=== PATIENT | female | born 2000 | race Caucasian/White ===

== ENCOUNTER 2020-08-10 20:50 | Emergency (ER) | payer MEDICAID ==
[~2020-08-10] VITALS: Ht 161.3 cm; Wt 89.8 kg
[2020-08-10 20:55] VITALS: BP 141/66
--- NOTE | 2020-08-10 20:57 | NUR ---
To ED bed 07
--- NOTE | 2020-08-10 21:03 | NUR ---
20 y/o female presented to ER c/o Rt ear pain x 4 days. Pt denies any discharge but states is constant 8/10 ache pain in right ear. Pt denies fever, body aches, chills. Pt took advil w/ no relief. Pt resting in chair, VSS. No acute distress noted. pmh: denies NKA
--- NOTE | 2020-08-10 21:03 | NUR ---
Dr. Fajardo examining patient.
[2020-08-10] MEDS ORDERED: KETOROLAC 60 MG/2 ML VIAL IM ONE (21:10)
[2020-08-10] MEDS ORDERED: ACET-8386 PO (21:19)
[2020-08-10] MEDS ORDERED: IBUP-2213 PO (21:19)
[2020-08-10 21:28] VITALS: BP 141/66
--- NOTE | 2020-08-10 21:28 | NUR ---
Patient discharged with v/s stable. Written and verbal after care instructions given and explained. Patient alert, oriented and verbalized understanding of instructions. Ambulatory with steady gait. All questions addressed prior to discharge. ID band removed. Patient advised to follow up with PMD. Rx of ibuprofen & norco given. Patient educated on indication of medication including possible reaction and side effects. Opportunity to ask questions provided and answered.
== END 2020-08-10 21:28 | disposition home or self-care (01) ==
LOC: MED 20:50
DX: H92.01 Otalgia, right ear (principal)
CPT/HCPCS: 81025; 96372; 99283; J1885

== ENCOUNTER 2021-02-09 07:46 | Inpatient (IN) | payer MEDICAID, OTHER ==
[~2021-02-09] VITALS: Ht 160 cm; Wt 88.0 kg
[~2021-02-09 07:46] MED LIST: ACET-8386 PO; IBUP-2213 PO
[2021-02-09 07:51] VITALS: BP 121/77
[2021-02-09] MEDS ORDERED: KETOROLAC 30 MG/ML VIAL IVP ONE (08:10)
[2021-02-09] MEDS ORDERED: ONDANSETRON 4 MG/2 ML VIAL IVP ONE (08:10)
[2021-02-09] MEDS ORDERED: NACL 0.9% 1,000 ML IV ONE (08:10)
[2021-02-09] MEDS ORDERED: MORPHINE SULFATE 2 MG/ML SYR IVP ONE (08:10)
--- NOTE | 2021-02-09 08:25 | NUR ---
Dr. Jameson is evaluating patient at bedside
--- NOTE | 2021-02-09 08:25 | NUR ---
20 y/o F BIB family from home c/o epigastric pain x 1 day. Patient A&Ox4, ambulatory, reports upper abd pain 10/10, sharp/constant, radiating to R low back. Pt states Ibuprofen 800mg @ 0100 today without relief to symptoms. Patient denies dysuria, urinary symptoms, nausea, vomiting, diarrhea, constipation, chest pain. States pain worsens with movement. Last BM: today normal. Upper abd round/soft/tender to palpation. Pt placed into a gown and UA collected. Bed locked in lowest position, side rails x 1. LMP: Nov 2020 PMH: DENIES DAMION
--- NOTE | 2021-02-09 08:30 | NUR ---
Lab at bedside. UA handed to CPT [place].
--- NOTE | 2021-02-09 08:36 | NUR ---
US tech at bedside
[2021-02-09 08:42] LABS: BASOPHILS % (AUTO) 0.1 % (0.0-2.0); EOSINOPHILS # (AUTO) 0.1 K/uL (0-0.4); EOSINOPHILS % (AUTO) 0.4 % (0.0-4.0); HEMATOCRIT 38.1 % (36-48); HEMOGLOBIN 12.7 g/dL (12.0-16.0); LYMPHOCYTES % (AUTO) 16.2 % (20.5-51.1); MEAN CORPUSCULAR HEMOGLOBIN 30 pg (27-31); MEAN CORPUSCULAR HGB CONC 33 g/dL (33-37); MEAN CORPUSCULAR VOLUME 89.8 fL (80-94); MONOCYTES # (AUTO) 0.8 K/uL (0.8-1.0); MONOCYTES % (AUTO) 6.1 % (1.7-9.3); NEUTROPHILS # (AUTO) 9.7 K/uL (1.8-7.7); NEUTROPHILS % (AUTO) 77.2 % (42.2-75.2); PLATELET COUNT (AUTO) 301 K/uL (140-450); RED BLOOD CELL COUNT(AUTO) 4.24 MIL/uL (4.20-5.40); RED CELL DISTRIBUTION WIDTH 12.8 % (11.6-13.7); WHITE BLOOD COUNT (AUTO) 12.6 K/uL (4.8-10.8)
[2021-02-09 09:00] LABS: APPEARANCE,URINE CLEAR (CLEAR); BILIRUBIN,URINE NEGATIVE (NEGATIVE); BLOOD, URINE 1+ (NEGATIVE); COLOR,URINE YELLOW (YELLOW); LEUKOCYTE ESTERASE ,URINE NEGATIVE (NEGATIVE); NITRITE, URINE NEGATIVE (NEGATIVE); PH,URINE 6.5 (5.0-9.0); UGLUCOSE NEGATIVE (NEGATIVE)
[2021-02-09 09:01] LABS: ALBUMIN 3.5 g/dL (3.4-5.0); ANION GAP 16.3 (8-16); CARBON DIOXIDE 21.6 mmol/L (21-32); CREATININE 0.8 mg/dL (0.6-1.3); POTASSIUM 3.9 mmol/L (3.5-5.1); TOTAL BILIRUBIN 0.5 mg/dL (0.0-1.0)
--- NOTE | 2021-02-09 09:15 | NUR ---
Pt states minor relief to pain "6-10/04" at this time. Denies nausea.
[2021-02-09 09:20] LABS: RBC,URINE 11-20 (MOD) /HPF (0-5); WBC,URINE 0-5 /HPF (0-5)
--- NOTE | 2021-02-09 10:05 | NUR ---
Pt states increasing pain; 8/10 at this time no nausea. Dr. Jameson made aware.
[2021-02-09] MEDS ORDERED: MORPHINE SULFATE 4 MG/ML SYR IVP ONE (10:15)
--- NOTE | 2021-02-09 10:30 | NUR ---
IV SITE TO LEFT FOREARM NOTED WITH COOLNESS + STINGING PAIN PER PT. NO BLOOD RETURN; IV DISCONTINUED
--- NOTE | 2021-02-09 10:39 | NUR ---
Pt states + relief to pain. 0/10 at this time.
--- NOTE | 2021-02-09 10:40 | NUR ---
Patient transported to CT by .
--- NOTE | 2021-02-09 11:21 | NUR ---
Pt resting in semi-fowlers position. Pain 2/10 at this time; denies nausea. All pt needs met. Bed locked in lowest position, side rails x 1, call light in reach.
[2021-02-09] MEDS ORDERED: KETOROLAC 15 MG/ML VIAL IVP ONE (11:40)
[2021-02-09] MEDS ORDERED: ACETAMINOPHEN 325 MG TAB PO PRN (12:10)
[2021-02-09] MEDS ORDERED: ONDANSETRON 4 MG/2 ML VIAL IVP PRN (12:10)
[2021-02-09] MEDS ORDERED: HYDROcodone/APAP 5/325 MG 1 TAB TAB PO PRN (12:10)
[2021-02-09] MEDS: DEXT 5% /NACL 0.9% 1,000 ML IV SCH ×2 (12:33→22:10)
--- NOTE | 2021-02-09 13:30 | NUR ---
Patient will be admitted to care of Dr. Church. Admited to med/Surg. Will go to room 120 A. Belongings list completed. Report to ADAM Manriquez
[2021-02-09] MEDS: MORPHINE SULFATE 4 MG/ML SYR IVP PRN (14:49)
[2021-02-09 16:30] VITALS: BP 109/64
--- NOTE | 2021-02-09 16:30 | NUR ---
RECEIVED REPORT FROM EDUARDO PT IS AAOX4 ON ROOM AIR, AMBULATORY, IV INTACT ON RIGHT AC G20 WITH D5NS AT 100 MLS/HR, DENIES ANY PAIN AT THIS TIME, MORPHINE GIVEN AT 1449 AND 1 LITER BOLUS GIVEN AT ER, ZOFRAN 4 MG, NO SIGNS OF N/V . PT ON NPO. SAFETY MEASURES IN PLACE AND CALL LIGHT WITHIN REACH. WILL CONTINUE TO MONITOR.
--- NOTE | 2021-02-09 17:00 | NUR ---
MRSA NARES DONE AND SENT TO LAB.
--- NOTE | 2021-02-09 18:12 | NUR ---
PATIENT COMPLAINS OF HEADACHE TYLENOL 650 MG GIVEN WITH A SIP OF WATER. PT IS STABLE
--- NOTE | 2021-02-09 19:12 | NUR ---
ENDORSED TO NIGHT NURSE FOR CONTINUITY OF CARE. PT STABLE
--- NOTE | 2021-02-09 19:13 | NUR ---
RECEIVED BEDSIDE REPORT FROM AM SHIFT RN. PT IS A&O X4, ON ROOM AIR, AND AMBULATORY. DIET IS NPO. DX: PANCREATITIS D5 NS RUNNING AT 100ML/HR, RAC 20G. SAFETY MEASURES IN PLACE, CALL LIGHT WITHIN REACH. PT STABLE. WILL CONTINUE TO MONITOR.
[2021-02-09 20:00] VITALS: BP 110/59
--- NOTE | 2021-02-09 21:50 | NUR ---
PATIENT IS AWAKE, WATCHING TV. NO SIGNS OF DISTRESS. SAFETY MEASURES IN PLACE. PT STABLE. WILL CONTINUE TO MONITOR.
--- NOTE | 2021-02-09 23:55 | NUR ---
PATIENT IS ASLEEP. NO SIGNS OF DISTRESS. WILL CONTINUE TO MONITOR.
[2021-02-10] MEDS: DEXT 5% /NACL 0.9% 1,000 ML IV SCH ×3 (01:49→19:00)
--- NOTE | 2021-02-10 02:30 | NUR ---
PT IS ASLEEP. NO SIGNS OF DISTRESS. IV PUMP WAS BEEPING DUE TO HIGH PRESSURE. PT HAS IV SITE ON RAC. READJUSTED ARM AND IV PUMP STOPPED BEEPING
[2021-02-10 04:00] VITALS: BP 105/61
--- NOTE | 2021-02-10 04:10 | NUR ---
PATIENT IS ASLEEP. NO SIGNS OF DISTRESS. WILL CONTINUE TO MONITOR.
--- NOTE | 2021-02-10 05:12 | NUR ---
TOOK PT VITALS. PT TEMP 100.1. REMOVED BED SHEETS AND PROVIDED ICE PACK TO REDUCE FEVER. WILL REASSESS TEMP IN 1HR. HELP PT AMBULATE TO THE BATHROOM. SAFETY MEASURES IN PLACE.
--- NOTE | 2021-02-10 05:42 | NUR ---
REASSESS PT TEMP. PT TEMP DECREASED TO 99.1. WILL CONTINUE TO MONITOR.
[2021-02-10 07:05] LABS: BASOPHILS % (AUTO) 0.2 % (0.0-2.0); EOSINOPHILS # (AUTO) 0.1 K/uL (0-0.4); EOSINOPHILS % (AUTO) 0.7 % (0.0-4.0); HEMATOCRIT 38.3 % (36-48); HEMOGLOBIN 13.1 g/dL (12.0-16.0); LYMPHOCYTES # (AUTO) 1.4 K/uL (2.5-16.5); LYMPHOCYTES % (AUTO) 13.2 % (20.5-51.1); MEAN CORPUSCULAR HEMOGLOBIN 31 pg (27-31); MEAN CORPUSCULAR HGB CONC 34 g/dL (33-37); MEAN CORPUSCULAR VOLUME 90.4 fL (80-94); MONOCYTES # (AUTO) 0.8 K/uL (0.8-1.0); MONOCYTES % (AUTO) 7.3 % (1.7-9.3); NEUTROPHILS # (AUTO) 8.6 K/uL (1.8-7.7); NEUTROPHILS % (AUTO) 78.6 % (42.2-75.2); PLATELET COUNT (AUTO) 287 K/uL (140-450); RED BLOOD CELL COUNT(AUTO) 4.24 MIL/uL (4.20-5.40); RED CELL DISTRIBUTION WIDTH 12.9 % (11.6-13.7)
[2021-02-10 07:10] LABS: ALBUMIN 3.2 g/dL (3.4-5.0); ANION GAP 11.4 (8-16); CARBON DIOXIDE 25.9 mmol/L (21-32); CREATININE 0.8 mg/dL (0.6-1.3); POTASSIUM 4.3 mmol/L (3.5-5.1); TOTAL BILIRUBIN 0.6 mg/dL (0.0-1.0)
--- NOTE | 2021-02-10 07:16 | NUR ---
PASSED ON BEDSIDE REPORT TO AM SHIFT RN. PT STABLE
--- NOTE | 2021-02-10 07:17 | NUR ---
RECEIVED BEDSIDE REPORT FROM NIGHT NURSE. PT IS A&O X4 AND RA. DIET IS NPO. RAC 20G. SAFETY MEASURES IN PLACE, CALL LIGHT WITHIN REACH. PT STABLE.
[2021-02-10] MEDS: PANTOPRAZOLE 40 MG INJ VIAL IVP SCH (09:07)
[2021-02-10] MEDS: MORPHINE SULFATE 4 MG/ML SYR IVP PRN ×3 (09:10→15:17)
--- NOTE | 2021-02-10 09:43 | NUR ---
PATIENT HAS BEEN SCREENED AND CATEGORIZED LOW NUTRITION RISK. PATIENT WILL BE SEEN WITHIN 7 DAYS OF ADMISSION. 02/16/21 REVIEWED BY ZAKIYA QIU RD
--- NOTE | 2021-02-10 13:52 | NUR ---
DC PLANNING: THE PATIENT ADMITTED THROUGH THE ER WITH C/O ABDOMINAL PAIN. GB US NEGATIVE FOR CHOLELITHIASIS, CT OF ABDOMEN POSITIVE FOR ACUTE PANCREATITIS. THE PATIENT WAS MADE NPO AND STARTED ON IVF'S AND PAIN MANAGEMENT. CM SPOKE WITH THE PATIENT AT BEDSIDE AND CONFIRMED HER ADDRESS AND PHONE NUMBER PER HER FACE SHEET. THE PATIENT LIVES WITH HER PARENTS IN A GROUND FLOOR APARTMENT AND IS INDEPENDENT IN ALL ACTIVITIES. NO H/O HOME HEALTH, THE PATIENT IS CURRENTLY A STUDENT. SHE SEES HER PCP REGULARLY AND HAS NO ANTICIPATED DC NEEDS. DCP IS FOR THE PATIENT TO RETURN HOME WITH FAMILY, CM WILL FOLLOW FOR NEEDS.
[2021-02-10 16:00] VITALS: BP 111/70
--- NOTE | 2021-02-10 19:27 | NUR ---
ENDORSED TO SERVICE ASSOCIATE NURSE FOR CONTINUITY OF CARE. PT IS STABLE.
--- NOTE | 2021-02-10 19:28 | NUR ---
RECEIVED REPORT FROM MORNING SHIFT FOR CONTINUITY OF CARE. PATIENT IS STABLE IN BED. A&OX4. VERBALLY RESPONSIVE AND ABLE TO COMMUNICATE NEEDS. DENIES PAIN AT THIS TIME. NO APPARENT S/SX OF ACUTE DISTRESS. ON ROOM AIR. BREATHING EVEN AND UNLABORED. RIGHT AC 20G INTACT/PATENT WITH D5NS INFUSING AT 75 ML/HOUR. SKIN IS INTACT. PATIENT IS CONTINENT AND AMBULATORY. PLAN OF CARE AND WHITE COMMUNICATION BOARD UPDATED. BED IN LOW/LOCKED POSITION. CALL LIGHT WITHIN REACH. PATIENT ENCOURAGED TO CALL FOR ANY NEEDS/ASSISTANCE. WILL CONTINUE TO MONITOR.
[2021-02-10 20:00] VITALS: BP 105/64
--- NOTE | 2021-02-10 21:30 | NUR ---
CHECKED PATIENT. STABLE AND ASLEEP IN SUPINE POSITION. CHEST RISING AND FALLING. RESPIRATIONS EVEN AND UNLABORED. NO S/SX OF ACUTE DISTRESS. ALL SAFETY MEASURES IN PLACE. CALL LIGHT WITHIN REACH. WILL CONTINUE TO MONITOR.
--- NOTE | 2021-02-10 22:30 | NUR ---
ROUNDED ON PATIENT. STABLE AND ASLEEP IN SUPINE POSITION. CHEST RISING AND FALLING. RESPIRATIONS EVEN AND UNLABORED. NO S/SX OF ACUTE DISTRESS. ALL SAFETY MEASURES IN PLACE. CALL LIGHT WITHIN REACH. WILL CONTINUE TO MONITOR.
--- NOTE | 2021-02-10 23:33 | NUR ---
RECEIVED REPORT OF PT FROM LITO ULLOA.PT IS IN STABLE CONDITION.NO S/S OF ANY DISTRESS NOTED.CALL LIGHT IN REACH.WILL CONT.MONITORING.
[2021-02-11] MEDS: DEXT 5% /NACL 0.9% 1,000 ML IV SCH ×2 (02:40→08:20)
[2021-02-11 04:00] VITALS: BP 93/53
--- NOTE | 2021-02-11 04:30 | NUR ---
PT IS SLEEPING.NO DISTRESS NOTED AT THIS TIME.WILL CONT.MONITORING.CALL LIGHT WITHIN REACH.
[2021-02-11 06:03] LABS: BASOPHILS % (AUTO) 0.2 % (0.0-2.0); EOSINOPHILS # (AUTO) 0.1 K/uL (0-0.4); EOSINOPHILS % (AUTO) 1.3 % (0.0-4.0); HEMATOCRIT 36.8 % (36-48); HEMOGLOBIN 12.4 g/dL (12.0-16.0); LYMPHOCYTES # (AUTO) 2.1 K/uL (2.5-16.5); LYMPHOCYTES % (AUTO) 21.9 % (20.5-51.1); MEAN CORPUSCULAR HEMOGLOBIN 30 pg (27-31); MEAN CORPUSCULAR HGB CONC 34 g/dL (33-37); MEAN CORPUSCULAR VOLUME 89.7 fL (80-94); MONOCYTES # (AUTO) 0.9 K/uL (0.8-1.0); MONOCYTES % (AUTO) 8.9 % (1.7-9.3); NEUTROPHILS # (AUTO) 6.6 K/uL (1.8-7.7); NEUTROPHILS % (AUTO) 67.7 % (42.2-75.2); PLATELET COUNT (AUTO) 287 K/uL (140-450); RED BLOOD CELL COUNT(AUTO) 4.11 MIL/uL (4.20-5.40); RED CELL DISTRIBUTION WIDTH 12.5 % (11.6-13.7); WHITE BLOOD COUNT (AUTO) 9.8 K/uL (4.8-10.8)
[2021-02-11 06:24] LABS: ALBUMIN 3.1 g/dL (3.4-5.0); ANION GAP 12.9 (8-16); CARBON DIOXIDE 24.8 mmol/L (21-32); CREATININE 0.8 mg/dL (0.6-1.3); POTASSIUM 3.7 mmol/L (3.5-5.1); TOTAL BILIRUBIN 0.5 mg/dL (0.0-1.0)
--- NOTE | 2021-02-11 06:39 | NUR ---
SLEPT WELL.IVF INFUSING WELL.CALL LIGHT WITHIN REACH.NO C/O PAIN OR DISCOMFORT NOW.ADVANCED DIET TO FULL LIQUID DIET.
--- NOTE | 2021-02-11 07:13 | NUR ---
Patient's Plan of Care was discussed and reviewed with GARMENT PATTERNMAKER: LITO TRAVIS RN Addendum: 02/11/21 at 0747 by Montserrat Stokes RN RN BEDSIDE REPORT RECEIVED. PT RESTING IN BED EYES CLOSED BREATHING IS SYMMETRICAL AND UNLABORED . ALL SAFETY MEASURES IN PLACE.
--- NOTE | 2021-02-11 07:30 | NUR ---
BEDSIDE REPORT RECEIVED. PT RESTING IN BED ON RIGHT SIDE . BREATHING IS SYMMETRICAL AND UNLABORED . ALL SAFETY MEASURES IN PLACE.
[2021-02-11] MEDS: PANTOPRAZOLE 40 MG INJ VIAL IVP SCH (09:00)
--- NOTE | 2021-02-11 09:20 | NUR ---
PATIENT REFUSED MEDICATION AT THIS TIME . NO IV ACCESS. PATIENT EDUCATED AND VERBALIZED UNDERSTANDIGN ALL SAFETY MEASURES ARE IN PLACE.
--- NOTE | 2021-02-11 11:20 | NUR ---
PATIENT RESTING IN BED , MOTHER AND DAUGHTER ARE PRAYING . ALL SAFETY MEASURES ARE IN PLACE
[2021-02-11 12:00] VITALS: BP 108/65
--- NOTE | 2021-02-11 13:20 | NUR ---
PATIENT DISCHARGE INSTRUCTIONS COMPLETE , PATIENT EDUCATED, FOLLOWING UP WITH PRIMARY CARE, PATIENT VERBALIZED UNDERSTANDING FOR CONTINUITY OF CARE. ALL SAFETY MEASURES ARE IN PLACE,
--- NOTE | 2021-02-11 13:25 | NUR ---
PATIENT LEFT UNIT IN [facility] [PATIENT AMBULATED TO HER PARTNERS CAR. TOLERATED WELL. PATIENT IN STABLE CONDITION . PT GATHERED ALL BELONGINGS AND ID BAND WAS REMOVED.
--- NOTE | 2021-02-13 11:00 | NUR ---
DC PLANNING SW CALLED PATIENT'S PCP OFFICE AT TO SCHEDULED A FOLLOW UP APPOINTMENT FOR PATIENT AFTER HER DC FROM [facility] ON 02/11/2021. MARI SPOKE TO JENARO WHO PROVIDED A FOLLOW UP APPOINTMENT FOR PATIENT FOR 02/23/2021 AT 12:30PM. PER BUCK THAT IS THE SOONEST APPOINTMENT AVAILABLE FOR PATIENT DUE TO THE HOLIDAYS. THEREFORE, THIS FARM LABORER SCHEDULED APPT AND ENDED THE CALL. MARI CALLED PATIENT TO INFORM HER OF THE SCHEDULED APPOINTMENT WITH [facility]. [address] ON 02/23/2021 AT 12:300PM. PATIENT WAS HAPPY WITH APPOINTMENT AND THANKED MARI.
== END 2021-02-11 13:25 | disposition home or self-care (01) | DRG 282 ==
LOC: MED 07:46 → MTU 12:15
PROVIDERS: ADMIT Internal Medicine; ATTEND Internal Medicine
DX: K85.90 Acute pancreatitis without necrosis or infection, unspecified (principal); R65.11 Systemic inflammatory response syndrome (SIRS) of non-infectious origin with acute organ dysfunction; Z79.1 Long term (current) use of non-steroidal anti-inflammatories (NSAID); Z79.891 Long term (current) use of opiate analgesic; Z79.899 Other long term (current) drug therapy
CPT/HCPCS: 36415; 76705; 80053; 81001; 83690; 83735; 85025; 87081; 96361; 96374; 96375; 96376; 99285; C9113; J1885; J2270; J2405; Q0092